=== PATIENT | female | born 2000 | race Caucasian/White ===

== ENCOUNTER 2023-01-12 23:20 | Emergency (ER) | payer OTHER ==
[~2023-01-12] VITALS: Ht 161.3 cm; Wt 59.0 kg
[2023-01-13 00:01] VITALS: O2SAT 97
[2023-01-13] MEDS ORDERED: IBUPROFEN 600MG TABLET PO ONE (01:15)
[2023-01-13 01:27] VITALS: BP 110/60; PULSE 80; RESP 16; TEMP 98
== END 2023-01-13 01:28 | disposition home or self-care (01) ==
LOC: ER 23:20
DX: H93.90 Unspecified disorder of ear, unspecified ear (principal)
CPT/HCPCS: 81025; 99282